=== PATIENT | female | born 1960 | race Caucasian/White ===

== ENCOUNTER → 2016-10-26 | Outpatient (CLI) | payer OTHER ==
--- NOTE | ~2016-10-26 | CR169 ---
[facility] A Service of [facility] & [facility] RADIOLOGY TEXT RESULTS PATIENT: CHARLES HARRELL LOCATION: [facility] : 62 UNIT #: [id number] AGE: [address]: Simeon Barkley MD SEX: F ORDER DR: [id number] [facility] [address] [place], [place] [address] [id number] O MR#: [id number] Acc #: [id number] NAME: CHARLES HARRELL : 1960 SEX: F STUDY DATE/TIME: 10/26/2016 11:08 UNIT: [facility] ROOM: STUDY DESCRIPTION: CR Knee 2 Views Lt Attending Physician: Simeon Barkley M.D. Referring Physician: Simeon Barkley M.D. Ordering Physician: Simeon Barkley M.D. Primary Care Physician: Simeon Barkley M.D. MEDICAL IMAGING REPORT This report is preliminary unless electronic signature is present EXAM Left knee at 10/26/2016 HISTORY 56-year-old female with bilateral knee pain for 6 months. COMPARISON None. FINDINGS 2 views of the left knee demonstrate no acute fracture or dislocation. No joint effusion. Mild medial compartment joint space narrowing. Soft tissues are unremarkable. IMPRESSION 1. No acute fracture or dislocation. 2. Mild medial compartment joint space narrowing. Dictated by... Jorge Minaya M.D. THIS IS AN ELECTRONICALLY VERIFIED REPORT Jorge Minaya M.D. at 10/27/2016 2:30 PM JULIET/chelsie TD: 10/27/2016 12:08 JOB #: [id number] MEDICAL IMAGING REPORT Page 1 of 1 COPY
--- NOTE | ~2016-10-26 | CR170 ---
[facility] A Service of [facility] & [facility] RADIOLOGY TEXT RESULTS PATIENT: CHARLES HARRELL LOCATION: [facility] : 62 UNIT #: [id number] AGE: [address]: Simeon Barkley MD SEX: F ORDER DR: [id number] [facility] [address] [place], [place] [address] [id number] O MR#: [id number] Acc #: [id number] NAME: CHARLES HARRELL : 1960 SEX: F STUDY DATE/TIME: 10/26/2016 11:07 UNIT: [facility] ROOM: STUDY DESCRIPTION: CR Knee 2 Views Rt Attending Physician: Simeon Barkley M.D. Referring Physician: Simeon Barkley M.D. Ordering Physician: Simeon Barkley M.D. Primary Care Physician: Simeon Barkley M.D. MEDICAL IMAGING REPORT This report is preliminary unless electronic signature is present EXAM Right knee 10/26/2016 HISTORY 56-year-old female with bilateral knee pain for 6 months. No specific injury. COMPARISON None. FINDINGS Two views of the right knee demonstrate no acute fracture or dislocation. No joint effusion. Mild medial compartment joint space narrowing. Soft tissues are unremarkable. IMPRESSION No acute fracture or dislocation. Mild medial compartment joint space narrowing. Dictated by... Jorge Minaya M.D. THIS IS AN ELECTRONICALLY VERIFIED REPORT Jorge Minaya M.D. at 10/27/2016 2:30 PM JULIET/valerie TD: 10/27/2016 12:06 JOB #: [id number] MEDICAL IMAGING REPORT Page 1 of 1 COPY
== END | disposition home or self-care (01) ==
LOC: CRAD 10:46
DX: M25.561 Pain in right knee (principal); M25.562 Pain in left knee
CPT/HCPCS: 73560

== ENCOUNTER 2016-10-28 10:55 | Emergency (ER) | payer OTHER ==
--- NOTE | ~2016-10-28 | CR21 ---
[facility] A Service of [facility] & [facility] RADIOLOGY TEXT RESULTS PATIENT: CHARLES HARRELL LOCATION: [place] : 62 UNIT #: [id number] AGE: [address]: Bharati Cedeño SEX: F ORDER DR: [id number] [facility] [address] [place], [place] [address] [id number] E MR#: [id number] Acc #: [id number] NAME: CHARLES HARRELL : 1960 SEX: F STUDY DATE/TIME: 10/28/2016 11:34 UNIT: [facility] ROOM: STUDY DESCRIPTION: CR Ankle Min 3 Views Rt Attending Physician: Bharati Cedeño P.A.-C. Ordering Physician: Bharati Cedeño P.A.-C. Primary Care Physician: Simeon Barkley M.D. MEDICAL IMAGING REPORT This report is preliminary unless electronic signature is present EXAM Right ankle 3 views 10/28/2016 1134 hours HISTORY Patient complains of lower leg and ankle pain with laceration in the medial ankle. Patient dropped a margarita on her ankle 2 days ago. COMPARISON None. FINDINGS AP, lateral and oblique views demonstrate mild medial soft tissue swelling with no fracture, dislocation or radiopaque foreign body. IMPRESSION Medial soft tissue swelling. No fracture, dislocation or foreign body. Dictated by... Marilou Harden M.D. THIS IS AN ELECTRONICALLY VERIFIED REPORT Marilou Harden M.D. at 10/28/2016 2:27 PM YEHUDA/heidy TD: 10/28/2016 13:26 JOB #: [id number] MEDICAL IMAGING REPORT Page 1 of 1 COPY
--- NOTE | ~2016-10-28 | CR253 ---
[facility] A Service of [facility] & [facility] RADIOLOGY TEXT RESULTS PATIENT: CHARLES HARRELL LOCATION: [place] : 62 UNIT #: [id number] AGE: [address]: Bharati Cedeño SEX: F ORDER DR: [id number] [facility] [address] [place], [place] [address] [id number] E MR#: [id number] Acc #: [id number] NAME: CHARLES HARRELL : 1960 SEX: F STUDY DATE/TIME: 10/28/2016 11:31 UNIT: [facility] ROOM: STUDY DESCRIPTION: CR Tibia and Fibula 2 Views Rt Attending Physician: Bharati Cedeño P.A.-C. Ordering Physician: Bharati Cedeño P.A.-C. Primary Care Physician: Simeon Barkley M.D. MEDICAL IMAGING REPORT This report is preliminary unless electronic signature is present EXAM Right tibia and fibula, 10/28/2016 11:31 hours HISTORY 56-year-old woman with lower leg and ankle pain. Patient states a car margarita dropped on her ankle area on 10/26/2016. COMPARISON None FINDINGS AP and lateral views of the tibia and fibula demonstrate no fracture or dislocation. No radiopaque foreign body. IMPRESSION Negative right tibia and fibula. Dictated by... Marilou Harden M.D. THIS IS AN ELECTRONICALLY VERIFIED REPORT Marilou Harden M.D. at 10/28/2016 2:27 PM Galina TD: 10/28/2016 13:16 JOB #: [id number] MEDICAL IMAGING REPORT Page 1 of 1 COPY
== END 2016-10-28 12:45 | disposition home or self-care (01) ==
LOC: CFTX 10:55 → CED 10:55 → CFTX 12:13
DX: S93.411A Sprain of calcaneofibular ligament of right ankle, initial encounter (principal); F41.9 Anxiety disorder, unspecified; F17.210 Nicotine dependence, cigarettes, uncomplicated; Z23 Encounter for immunization; W22.8XXA Striking against or struck by other objects, initial encounter; Y92.009 Unspecified place in unspecified non-institutional (private) residence as the place of occurrence of the external cause
CPT/HCPCS: 29515; 73590; 73610; 90471; 90715; 99283